=== PATIENT | male | born 1960 | race Caucasian/White ===

== ENCOUNTER → 2018-03-13 16:30 | Outpatient (CLI) | payer OTHER, SELFPAY ==
--- NOTE | 2018-03-13 09:55 | COLBX_PTH ---
PATIENT: MICHAEL LEAL LOC: [facility] U#:[id number] AGE/SX: 64/M ROOM: RE03/13/[address]: Dr. Av Carlson MD : 1960 BED: DIS: SPEC #: [id number] RECD: 03/13/18 15:35 STATUS: RIN JEFFERY #: [id number] HECTOR: 03/13/18 09:[address]: Av Carlson DEPT: SURGICAL PATHOLOGY RECD BY: Samuel Byrne ENTERED: 03/16/18 08:37 SP TYPE: COLON BX OT DR: PAT Tissues: A - Transverse colon B - Sigmoid colon biopsy Procedures: Surgery Specimen Level IV HEADER OPERATION: Colonoscopy PRE-OP DIAGNOSIS: Screening / polyp TISSUE SUBMITTED: A ? Transverse colon, rule out adenoma, B ? Sigmoid polyp, rule out adenoma MICROSCOPIC DIAGNOSIS A. Transverse colon polyp, biopsy: Tubular adenoma. B. Sigmoid polyp, biopsy: Tubular adenoma. SJ:anna marie 03/17/18 MICROSCOPIC DESCRIPTION Slides are reviewed. GROSS DESCRIPTION A - Received in fixative is one container labeled with the patient's name and designated transverse colon. The specimen consists of a piece of sellers-pink polyp measuring 0.7 x 0.7 x 0.3 cm. Also present in the container are multiple fragments of sellers soft tissue measuring in aggregate 1 x 0.1 x 0.1 cm. The entire specimen is submitted in one cassette. B - Received in fixative is one container labeled with the patient's name and designated sigmoid polyp. The specimen consists of a sellers-pink polyp measuring 0.5 x 0.5 x 0.3 cm. The specimen is totally submitted in one cassette. / SJ:anna marie 03/16/18 TC:1 CPT: 50323 x2
== END ==
PROVIDERS: Visit Provider Internal Medicine Gastroenterology
DX: Z12.11 Encounter for screening for malignant neoplasm of colon (principal); K63.5 Polyp of colon
CPT/HCPCS: 88305

== ENCOUNTER → 2020-02-16 | Outpatient (CLI) | payer OTHER, SELFPAY ==
[2020-02-16 07:48] VITALS: BMI 22.1
== END | disposition home or self-care (01) ==
LOC: LABSPEC 10:54
PROVIDERS: Referring Provider Physician Assistant; Visit Provider Physician Assistant
DX: Z20.828 Contact with and (suspected) exposure to other viral communicable diseases (principal)
CPT/HCPCS: 87635; G2023; U0003